=== PATIENT | male | born 1950 ===

== ENCOUNTER 2017-10-11 01:30 | Inpatient (IN) | payer MEDICARE, BC ==
--- NOTE | 2017-10-07 17:31 | HISTORY AND PHYSICAL ---
DATE OF ADMISSION: October 11, 2017 IDENTIFICATION AND CHIEF COMPLAINT Alfredo is a 66-year-old gentleman with the chief complaint of left shoulder pain. HISTORY OF PRESENT ILLNESS The patient has a longstanding history of shoulder arthritis that had become progressively painful and debilitating, refractory to conservative care. Surgery is indicated to relieve symptoms after failure of nonoperative measures. PAST MEDICAL HISTORY 1. History of heart disease. 2. Atrial fibrillation. 3. Hypertension, controlled on medication. 4. He is chronically anticoagulated on Xarelto. ALLERGIES His allergies include MULTAQ. CURRENT MEDICATIONS 1. Synthroid 50 mcg per day. 2. Xarelto 20 mg per day. 3. Tikosyn 500 mg b.i.d. 4. Metformin 1000 mg b.i.d. 5. Gabapentin 300 mg t.i.d. 6. Simvastatin 20 mg p.o. q. day. 7. Lisinopril 20 mg p.o. q. day. 8. Primidone 50 mg p.o. q. day. 9. Dutasteride 0.5 mg p.o. q. day. 10. Tamsulosin 4 mg p.o. q. day. 11. Zolpidem 5 mg p.o. q. day. 12. Pain medicine as needed. PAST SURGICAL HISTORY 1. Hernia repair. 2. Ablation surgery for arrhythmia. FAMILY HISTORY Notable for mother with stroke and cancer and father with emphysema. SOCIAL HISTORY Negative for tobacco and alcohol use. REVIEW OF SYSTEMS Negative. PHYSICAL EXAMINATION GENERAL: Healthy male, appears stated age. HEENT: Normocephalic, atraumatic. NECK: Supple. LUNGS: Clear. HEART: Regular. ABDOMEN: Soft. ORTHOPEDIC: The left shoulder has stiffness throughout range of motion. He has nucu-bv-ozld crepitus, tender at the anterior and posterior joint line. Gross cuff strength is normal. Radiographs demonstrate end-stage glenohumeral osteoarthritis. MRI demonstrates grossly intact cuff. ASSESSMENT Left shoulder end-stage glenohumeral osteoarthritis. PLAN We will proceed with total shoulder arthroplasty and concomitant with long head biceps tenodesis. The nature of this procedure, risks, benefits, and anticipated rehab course were reviewed, as well as nonoperative alternatives. The risks of the procedure include, but are not limited to , major medical or anesthetic complications, infection, neurovascular injury, blood transfusion , stiffness, scarring, fracture, tendon rupture, instability, implant loosening , migration, or failure, persistent or recurrent pain, need for additional surgery, and other unforeseen. He understands and wishes to proceed. Signed permit is placed in the chart. No guarantees were given or implied. ANA LAURA
[2017-10-10 16:08] LABS: INR 1.03
[2017-10-11] VITALS (18 sets, daily range): BP systolic 127–178; BP diastolic 73–105
[~2017-10-11] VITALS: Ht 175.3 cm; Wt 95.7 kg
[~2017-10-11 01:30] MED LIST: DOFE500C3 PO; DUTA0.5C14 PO; GABA-549 PO; LEVO50TA80 PO; LISI20TA29 PO; METF-420 PO; OMEP-125 PO; PRIM50TA PO; RIVA20TA PO; SIMV-49 PO; TAMS0.4C70 PO; ZOLP-350 PO
[2017-10-11] MEDS ORDERED: fentaNYL CITR 100 MCG/2 ML AMP ONE (12:30)
[2017-10-11] MEDS ORDERED: DEXAMETHASONE SOD 4 MG/ML VIAL ONE (12:31)
[2017-10-11] MEDS ORDERED: ONDANSETRON 4 MG/2 ML VIAL ONE (12:31)
[2017-10-11] MEDS ORDERED: PROPOFOL EMUL(*) 10MG/ML 20 ML 20 ML ONE (12:31)
[2017-10-11] MEDS ORDERED: LIDOCAINE MPF 1% 5 ML VIAL ONE (12:31)
[2017-10-11] MEDS ORDERED: ROPIVACAINE 0.5% 20 ML VIAL ONE (12:32)
[2017-10-11] MEDS ORDERED: NS 0.9% 20 ML SDV 20 ML ONE (12:32)
[2017-10-11] MEDS ORDERED: EPINEPHrine HCL 1 MG/ML AMP ONE (12:33)
[2017-10-11] MEDS ORDERED: MIDAZOLAM 2 MG/2 ML VIAL IVP PRN (13:40)
[2017-10-11] MEDS ORDERED: TRANEXAMIC AC 1000 MG/10ML SDV 1,000 MG in DEXTROSE 5% 50 ML BAG 50 ML IV ONE (13:40)
[2017-10-11] MEDS ORDERED: ceFAZolin(*) 2GM/D5W 50ML 50 ML IVPB ONE (13:40)
[2017-10-11] MEDS ORDERED: cloNIDine EPIDUR INJ 100MCG/ML 40 MCG, ROPIVACAINE 0.5% 20 ML VIAL 25 ML, EPINEPHrine H... INJ ONE (13:40)
[2017-10-11] MEDS ORDERED: LIDOCAINE/SOD BICARB 8.4% SYR ID ONE (13:40)
[2017-10-11] MEDS ORDERED: NORMOSOL R SOLN(*) 1000 ML BAG 1,000 ML IV PRN ×2 (13:40→16:35)
[2017-10-11] MEDS ORDERED: ROCURONIUM BROM 10 MG/ML 10 ML ONE (14:00)
[2017-10-11] MEDS ORDERED: KETAMINE HCL 200 MG/20 ML MDV ONE (14:00)
[2017-10-11] MEDS ORDERED: LACTATED RINGER 3000 ML BAG IR ONE (14:56)
[2017-10-11] MEDS ORDERED: SUGAMMADEX SOD 200 MG/2 ML SDV ONE (15:06)
[2017-10-11] MEDS ORDERED: THROMBIN TOP SOLN 5000INTLU VL ONE (15:28)
[2017-10-11] MEDS ORDERED: GELATIN SPONGE SZ 100 ONE (15:28)
[2017-10-11] MEDS ORDERED: ACETAMINOPHEN 325 MG TAB PO PRN (16:35)
[2017-10-11] MEDS ORDERED: diphenhydrAMINE 50 MG/ML VIAL IVP PRN (16:35)
[2017-10-11] MEDS ORDERED: DIAZEPAM 5 MG TAB PO PRN (16:35)
[2017-10-11] MEDS ORDERED: APAP/HYDROCODONE 325/7.5 TAB PO PRN (16:35)
[2017-10-11] MEDS ORDERED: ZOLPIDEM TARTRATE 5 MG TAB PO PRN (16:35)
[2017-10-11] MEDS ORDERED: FLUSH 10 ML SYR IVP PRN (16:35)
[2017-10-11] MEDS ORDERED: MAGNESIUM HYDROXIDE* 30ML UDCP PO PRN (16:35)
[2017-10-11] MEDS ORDERED: BENZOCAINE/MENTHOL 1 EACH LOZG PO PRN (16:35)
[2017-10-11] MEDS ORDERED: PROMETHAZINE 25 MG/ML 1 ML AMP IVP PRN (16:35)
[2017-10-11] MEDS ORDERED: diphenhydrAMINE 25 MG CAP PO PRN (16:35)
[2017-10-11] MEDS ORDERED: BISACODYL 10 MG SUPP PR PRN (16:35)
--- NOTE | 2017-10-11 16:57 | RADIOLOGY IMAGING REPORT ---
FACILITY: [facility] PATIENT NAME: Alfredo Fierro : 1950 MR: [id number] V: [id number] EXAM DATE: ORDERING PHYSICIAN: BOB CHUA TECHNOLOGIST: Location: [facility] Patient: Alfredo Fierro : 1950 Visit/Account:[id number] Date of Sevice: 10/11/2017 EXAMINATION: Left shoulder radiograph single view HISTORY: Postop left total shoulder arthroplasty. COMPARISON: None. FINDINGS: AP view of the left shoulder is obtained. Bones: No periprosthetic fracture. Joint spaces: Negative. Hardware: Shoulder arthroplasty is well-positioned on this single image. Alignment: Normal. Soft tissues/visualized lungs: Negative. IMPRESSION: Status post left total shoulder arthroplasty without evidence of postoperative complication. Report Dictated By: Tia Douglas MD at 10/11/2017 4:52 PM Report E-Signed By: Tia Douglas MD at 10/11/2017 4:52 PM WSN:[id number]
--- NOTE | 2017-10-11 18:09 | Hospitalist Consultation ---
History of Present Illness Requesting Physician Bob Chua MD Reason for Consult Post-op medical management History of Present Illness Alfredo is a 66-year-old gentleman with PMH of HTN, CAD, BPH, DM-II, Dyslipidemia , A.Fib and the patient has a longstanding history of shoulder arthritis that had become progressively painful and debilitating, refractory to conservative care. Surgery is indicated to relieve symptoms after failure of nonoperative measures. I was asked to evaluate this patient for his medical problems during his hospital stay. He complaints of left shoulder pain. I have reviewed his medical record and his current home medications are: 1. Synthroid 50 mcg per day. 2. Xarelto 20 mg per day. 3. Tikosyn 500 mg b.i.d. 4. Metformin 1000 mg b.i.d. 5. Gabapentin 300 mg t.i.d. 6. Simvastatin 20 mg p.o. q. day. 7. Lisinopril 20 mg p.o. q. day. 8. Primidone 50 mg p.o. q. day. 9. Dutasteride 0.5 mg p.o. q. day. 10. Tamsulosin 4 mg p.o. q. day. 11. Zolpidem 5 mg p.o. q. day. 12. Pain medicine as needed. History Home Meds Reported Medications Omeprazole (OMEPRAZOLE) 20 Mg Capsule.dr, 1 CAP PO QDAY, CAP 10/03/17 Zolpidem Tartrate (AMBIEN) 10 Mg Tablet, 1 TAB PO QHS, TAB 10/03/17 Tamsulosin Hcl (TAMSULOSIN HCL) 0.4 Mg Cap.er.24h, 0.4 MG PO DAILY, CAP 10/03/17 Dutasteride (AVODART) 0.5 Mg Capsule, 0.5 MG PO QDAY, CAPSULE 10/03/17 Primidone (PRIMIDONE) 50 Mg Tab, 75 MG PO DAILY, TAB 10/03/17 Lisinopril (LISINOPRIL) 20 Mg Tablet, 20 MG PO QDAY, TAB 10/03/17 Simvastatin (SIMVASTATIN) 20 Mg Tablet, 20 MG PO HS, TAB 10/03/17 Gabapentin (GABAPENTIN) 300 Mg Capsule, 600 MG PO BIDLS, CAPSULE 10/03/17 Gabapentin (GABAPENTIN) 300 Mg Capsule, 300 MG PO DAILY, CAPSULE 10/03/17 Metformin Hcl (METFORMIN HCL) 1,000 Mg Tablet, 1 TAB PO BID, TAB 10/03/17 Dofetilide (TIKOSYN) 500 Mcg Capsule, 500 MCG PO BID, CAPSULE 10/03/17 Rivaroxaban 20 Mg (XARELTO 20 MG) 20 Mg Tablet, 20 MG PO DAILY, TAB 10/03/17 Levothyroxine Sodium (SYNTHROID) 50 Mcg Tablet, 50 MCG PO QDAY, TAB 10/03/17 Allergies: Coded Allergies: dronedarone (Verified Allergy, Intermediate, INCREASES HEART RATE/BLOOD PRESSURE , DIARRHEA, 10/03/17) Patient History: FH: cancer FATHER FH: emphysema MOTHER FH: stroke FATHER Hx Smoking: No Smoking Status: Never Smoker Caffeine Intake: Soda Caffeine/Cups Per Day: 2 CANS DAILY Hx Alcohol Use: No Hx Substance Use Disorder: No Social Drug Use: Never History of IV Drug Use: No Review of Systems Constitutional: No Fever, No Weight Loss, No Weight Gain, No Chills Neurological: No Confusion, No Weakness, No Dizziness Cardiovascular: No Chest Pain, No Palpitations Respiratory: No Shortness of Breath, No Cough, No Wheezing Gastrointestinal: No Nausea, No Vomiting, No Diarrhea, No Constipation, No Abdominal Pain Genitourinary: No Dysuria, No Hematuria Musculoskeletal: Pain, No Sprain, No Strain Psychiatric: No Depression, No Anxiety Exam Vital Signs Vital Signs Date Time Temp Pulse Resp B/P (MAP) Pulse Ox O2 Delivery O2 Flow Rate FiO2 10/11/17 17:00 65 12 90 10/11/17 12:29 98.6 146/88 (107) Room Air General Appearance: Alert, Awake, No Acute Distress, Afebrile Neuro: No Gross deficits Eyes: PERRLA Respiratory: No Respiratory Distress GI: Abd Soft and Non-Tender Extremities: Soft and Non Tender Psych: Alert & Oriented X3, Appropriate Mood & Affect Medical Decision Making Pre-Admit Course Medical Record Review: Yes Assessment and Plan Problems: (1) Status post total shoulder arthroplasty Status: Acute Assessment & Plan: ROM, PT/OT and surgical management per surgery. (2) HTN (hypertension) Status: Chronic Assessment & Plan: I will resume his home medications and check his BP regularly. I will also continue his Statin. (3) BPH (benign prostatic hyperplasia) Status: Chronic Assessment & Plan: I will resume his home medications including Dutasteride 0.5 mg p.o. q. day. and Tamsulosin 4 mg p.o. q. day. (4) DM (diabetes mellitus) Status: Chronic Assessment & Plan: I will continue his Metformin and use Sliding scale for his Blood sugar control Condition stable Time Spent on Plan of Care: < 30 min Copies to: BOB CHUA MD Venous Thromboembolism VTE Risk Physician Assess for VTE Risk: Yes Patient's VTE Risk: High VTE Diagnostic Test 2 Days Prior to Admit: No Antithrombotics Is Pt On Any Antithrombotics?: No Problem Qualifiers (1) DM (diabetes mellitus): Diabetes mellitus type: type 2 LATRELL ESTEVES MD Oct 11, 2017 18:09
[2017-10-11] MEDS ORDERED: INSULIN HUMAN REGULAR SLIDING SCALE SC PRN (19:10)
[2017-10-11] MEDS ORDERED: DOFETILIDE 500 MCG PO ONE (20:55)
[2017-10-11] MEDS ORDERED: DOFETILIDE 500 MCG PO SCH (21:00)
[2017-10-11] MEDS ORDERED: SIMVASTATIN 20 MG TAB PO SCH (21:00)
[2017-10-11] MEDS: CELECOXIB 200 MG CAP PO SCH (21:01)
[2017-10-11] MEDS ORDERED: ceFAZolin(*) 1 GM VIAL 1 GM in NS(*) 0.9% 100 ML ADDVANT BAG 100 ML IVPB SCH (22:00)
[2017-10-12] VITALS: BP 133/79
--- NOTE | 2017-10-12 00:03 | OPERATIVE REPORT 1 ---
EVENT DATE: October 11, 2017 SURGEON: Ryne Sandoval MD ANESTHESIOLOGIST: Jon Blackman MD ANESTHESIA: General plus scalene. CRM COORDINATOR: Miles Ramsey PA-C PREOPERATIVE DIAGNOSES 1. Left shoulder glenohumeral osteoarthritis. 2. Long head biceps disease. POSTOPERATIVE DIAGNOSES 1. Left shoulder glenohumeral osteoarthritis. 2. Long head biceps disease. PROCEDURES PERFORMED Left total shoulder arthroplasty and concomitant long biceps tenodesis. ESTIMATED BLOOD LOSS 200 mL DRAINS None. SPECIMENS None. COMPLICATIONS None apparent. IMPLANTS USED [employer] HQ Unite System with a 14 stem, 14 proximal body, 52 x 18 concentric standard humeral head, and a 52 mm [place] Peg Glenoid. INDICATIONS Alfredo is a 67-year-old gentleman with progressive pain and disability related to end-stage shoulder arthritis. Surgery is indicated to relieve pain and improve function after failure of nonoperative measures. DESCRIPTION OF PROCEDURE The patient was taken to the operating room and placed supine on the operating table. A scalene block was administered by the anesthesiologist. General anesthesia was induced. Antibiotics were administered IV along with TXA. The patient was positioned in the beach chair position. All bony prominences and superficial nerves were well padded. The neck was secured in the neutral position. The left shoulder girdle and upper extremity were prepped and draped in the usual sterile fashion for shoulder arthroplasty. A curvilinear incision was made over the deltopectoral interval and carried down through the skin. The subcutaneous tissue was dissected down to the cephalic vein. The cephalad vein was taken laterally with the deltoid. The deltopectoral interval was developed bluntly. The clavipectoral fascia was released along the lateral aspect of the conjoined tendon. The axillary neurovascular bundle was identified and protected with a blunt Hohmann. Anterior humeral circumflex vessels were ligated. The upper portion of the pectoralis tendon was released, and the underlying biceps was identified. This was markedly adhered and inflamed. This was tenodesed with two [id number] #2 Ethibond sutures through the remaining pectoralis stump laterally. The proximal biceps above this area was released and taken up into the joint, transected, and removed. A tenotomy/arthrotomy was made 1.5 cm medial to the lesser insertion, and the subscapularis was tagged for later reattachment. A 360-degree release from scar was performed, taking care to protect the axillary neurovascular bundle. Next, a marking template was used to maribell for a 135-degree cut for the humeral osteotomy. The Crego retractor was used to protect the rotator cuff and to identify the bare area posteriorly. The patient's anatomic version was followed , this was roughly 25 degrees, with the osteotomy performed with an oscillating saw. The head was extracted. The humerus was translocated posteriorly. En face exposure to the glenoid was achieved by releasing the capsule and labrum as necessary along with the remaining biceps stump. There was some biconcavity. A 52 template appeared to demonstrate the ideal size. The center point was identified, and a pin was advanced orthogonal to the desired version of the glenoid, aiming for the glenoid center line. Good pin position was confirmed. This was overreamed with a large reamer. A nice contained socket was obtained. Peripheral holes were drilled using the standard fashion. The trial 52 had nice linear contact with the bone supporting on the back. I should note that after placing the guide pin, I reamed this first before creating the center hole. This created a nice, smooth, even contoured surface to support the implant. The trial implant did seat [id number]-nf-iaol with the bone. The surfaces were copiously lavaged. Peripheral holes were packed with thrombin and Gelfoam mixed. The Scene fast-acting cement was made. The Sw[place] Peg flutes were grafted with bone graft, and this was press fit into position. Once the cement had polymerized, attention was turned to humeral preparation. The starting awl started at the most superior and lateral aspect and found the canal. This was taken up to 14 where nice end-ostial contact was obtained. The Brosteotome was then inserted following the version of the cut, and then the trial 14 was dropped down. Humeral head trials were inserted, and soft tissue tension and balance were assessed. The 52 x 18 was ideal. The actual stem was then impacted into position. The Vazquez taper was lavaged and dried, and the actual humeral head was impacted into position. The joint was reduced. The subscapularis was reapproximated anatomically with #2 Ethibond figure-of- eight and horizontal mattress sutures. Condition of the axillary neurovascular bundle was inspected and felt to be ideal. The deltopectoral interval was allowed to fold back together after infiltrating the wound with a pain cocktail. The subcutaneous tissue was lavaged. Hemostasis was assured. The dermis was closed with 3-0 Vicryl and the skin with surgical angie. A dry, sterile dressing was applied, followed by an UltraSling. The patient was awakened from anesthesia and taken to the recovery room in stable condition, having tolerated the procedure well. PLAN The plan is for standard TSA rehab protocol. Active assist forward elevation to full with assistance above 90 degrees mandatory for the first month. External rotation to 40 for the first month and then out to full as tolerated slowly thereafter. No extension or internal rotation behind the back for the first four weeks. MTDD
[2017-10-12 03:41] VITALS: BP 129/76
[2017-10-12] MEDS: ceFAZolin(*) 1 GM VIAL 1 GM in NS(*) 0.9% 100 ML ADDVANT BAG 100 ML IVPB SCH ×2 (05:24→12:26)
[2017-10-12] MEDS ORDERED: LEVOTHYROXINE SOD 0.05 MG TAB PO SCH (06:00)
[2017-10-12] MEDS ORDERED: DOFETILIDE 500 MCG PO SCH (07:15)
[2017-10-12 07:45] VITALS: BP 138/86
[2017-10-12] MEDS ORDERED: ASPI81TA94 PO (07:58)
[2017-10-12] MEDS ORDERED: metFORMIN HCL 500 MG TAB PO SCH (08:00)
[2017-10-12] MEDS ORDERED: HYDR-4309 PO (08:04)
--- NOTE | 2017-10-12 08:10 | Pharmacy Note ---
Pharmacy Note Note: Dr. Multani had ordered the Xarelto to be held until check with Dr. Sandoval in am. Dr. Sandoval had ordered aspirin post-op. I called Med/surg (Kaylee) to let her know this. She said Dr. Sandoval had already been in so she would check chart for his notes. GALI BELTRAN Oct 12, 2017 08:10
[2017-10-12] MEDS ORDERED: GABAPENTIN 300 MG CAP PO SCH ×2 (09:00→12:00)
[2017-10-12] MEDS ORDERED: TAMSULOSIN HCL 0.4 MG CAP PO SCH (09:00)
[2017-10-12] MEDS ORDERED: RIVAROXABAN 10 MG TAB PO SCH (09:00)
[2017-10-12] MEDS ORDERED: LISINOPRIL 20 MG TAB PO SCH (09:00)
[2017-10-12] MEDS ORDERED: PANTOPRAZOLE SOD 20 MG TABEC PO SCH (09:00)
[2017-10-12] MEDS ORDERED: DUTASTERIDE 0.5 MG CAP PO SCH (09:00)
[2017-10-12] MEDS ORDERED: ASPIRIN 81 MG CHEW PO SCH (09:00)
[2017-10-12] MEDS ORDERED: PRIMIDONE 50 MG TAB PO SCH (09:00)
[2017-10-12] MEDS: CELECOXIB 200 MG CAP PO SCH (09:24)
--- NOTE | 2017-10-12 10:26 | Hospitalist Progress Note ---
Subjective Progress Notes Raiza Fuentes is a 66-year-old gentleman with PMH of HTN, CAD, BPH, DM-II, Dyslipidemia , A.Fib and the patient has a longstanding history of shoulder arthritis that had become progressively painful and debilitating, refractory to conservative care. Surgery is indicated to relieve symptoms after failure of nonoperative measures. I was asked to evaluate this patient for his medical problems during his hospital stay. He complaints of left shoulder pain. I have reviewed his medical record and his current home medications are: His current meds are: 1. Synthroid 50 mcg per day. 2. Xarelto 20 mg per day. 3. Tikosyn 500 mg b.i.d. 4. Metformin 1000 mg b.i.d. 5. Gabapentin 300 mg t.i.d. 6. Simvastatin 20 mg p.o. q. day. 7. Lisinopril 20 mg p.o. q. day. 8. Primidone 50 mg p.o. q. day. 9. Dutasteride 0.5 mg p.o. q. day. 10. Tamsulosin 4 mg p.o. q. day. 11. Zolpidem 5 mg p.o. q. day. 12. Pain medicine as needed. 10/12: He is doing well. He is afebrile and hemodynamically stable. I held his Xarelto yesterday after the surgery. He is being d/c'd home today. Patient Complains of: Neurological: No: Confusion, Weakness, Dizziness Cardiovascular: No: Chest Pain, Palpitations Respiratory: No: Cough, Congestion, Shortness of Breath Gastrointestinal: No Nausea, No Vomiting Genitourinary: Urinary Incontinence, No Dysuria, No Hematuria Musculoskeletal: Pain, No: Sprain, Strain Physical Exam Vital Signs Date Time Temp Pulse Resp B/P (MAP) Pulse Ox O2 Delivery O2 Flow Rate FiO2 10/12/17 07:45 98.4 68 12 138/86 (103) 86 Room Air 10/12/17 07:45 0.5 Intake and Output 10/13/17 07:00 Intake Total 0 ml Balance 0 ml Intake Oral 0 ml General Appearance: Alert, Awake, No Acute Distress, Afebrile Neuro: No Gross deficits Eyes: PERRLA Cardiovascular: No Edema Respiratory: No Respiratory Distress GI: Soft and Non-Tender Extremities: Soft and Non Tender (tender L-shoulder today) Psych: Alert & Oriented X3, Appropriate Mood & Affect Assessment and Plan Problems: (1) Status post total shoulder arthroplasty Status: Acute Assessment & Plan: ROM, PT/OT and surgical management per surgery. 10/12: Management as per surgery (2) HTN (hypertension) Status: Chronic Assessment & Plan: I will resume his home medications and check his BP regularly. I will also continue his Statin. 10/12: I will continue his home meds on his d/c He will hold Xarelto for total 48 hours and then restart as per Dr. Chua (3) BPH (benign prostatic hyperplasia) Status: Chronic Assessment & Plan: I will resume his home medications including Dutasteride 0.5 mg p.o. q. day. and Tamsulosin 4 mg p.o. q. day. (4) DM (diabetes mellitus) Status: Chronic Assessment & Plan: I will continue his Metformin and use Sliding scale for his Blood sugar control 10/12: His BS was stable during the stay Condition stable Time Spent on Plan of Care: < 30 min Copies to: BOB CHUA MD Exam Sepsis Risk: No Definite Risk Problem Qualifiers (1) Status post total shoulder arthroplasty: Laterality: left Qualified Codes: Z96.612 - Presence of left artificial shoulder joint (2) DM (diabetes mellitus): Diabetes mellitus type: type 2 LATRELL ESTEVES MD Oct 12, 2017 10:26
[2017-10-12 10:59] VITALS: BP 142/82
== END 2017-10-12 14:15 | disposition home or self-care (01) | DRG 483 ==
LOC: OR 01:30 → MED 17:40
PROVIDERS: ADMIT Orthopaedic Surgery; ATTEND Orthopaedic Surgery
PROC: 0LS40ZZ Reposition Left Upper Arm Tendon, Open Approach (ICD-10-PCS; 2017-10-11)
PROC: 0RRK0JZ Replacement of Left Shoulder Joint with Synthetic Substitute, Open Approach (ICD-10-PCS; principal; 2017-10-11 14:08)
DX: M19.012 Primary osteoarthritis, left shoulder (principal); I10 Essential (primary) hypertension; I25.10 Atherosclerotic heart disease of native coronary artery without angina pectoris; N40.0 Benign prostatic hyperplasia without lower urinary tract symptoms; E11.9 Type 2 diabetes mellitus without complications; E78.5 Hyperlipidemia, unspecified; R25.1 Tremor, unspecified; K21.9 Gastro-esophageal reflux disease without esophagitis; I48.2 Chronic atrial fibrillation; Z79.01 Long term (current) use of anticoagulants; Z88.8 Allergy status to other drugs, medicaments and biological substances; Z79.84 Long term (current) use of oral hypoglycemic drugs
CPT/HCPCS: 36415; 36416; 82948; 85610; 86850; 86900; 86901; 97165; J0171; J0690; J0735; J1100; J1885; J2001; J2250; J2405; J2704; J2795; J3010; J3490; J7050; J7060